=== PATIENT | female | born 1995 | race Hispanic/Latino ===

== ENCOUNTER 2017-07-27 12:39 | Emergency (ER) | payer SELFPAY ==
[~2017-07-27] VITALS: Ht 162.6 cm; Wt 73.0 kg
[2017-07-27] MEDS: AZITHROMYCIN ORAL SUSP 200 MG/5 ML PO SCH (13:15)
[2017-07-27] MEDS ORDERED: CEFTRIAXONE SOD 250 MG VIAL IM ONE (13:30)
[2017-07-27 14:10] VITALS: BP 135/61
== END 2017-07-27 13:45 | disposition home or self-care (01) ==
LOC: FSED 12:39
DX: A56.09 Other chlamydial infection of lower genitourinary tract (principal)
CPT/HCPCS: 99283; J0696